=== PATIENT | male | born 1970 | race Caucasian/White ===

== ENCOUNTER → 2017-12-15 | Day surgery (SDC) | payer OTHER ==
[2017-12-10 11:01] VITALS: BMI 31.0
[~2017-12-15] MED LIST: LACTATED RINGERS 1,000 ML IV ONE; LACTATED RINGERS 1,000 ML IV SCH; LIDOCAINE 1% 20 ML VIAL (10MG/ML) FOR IV START INTRADERMA PRN; PROPOFOL 10 MG/ML 20 ML VIAL IV ONE
[2017-12-15 09:12] VITALS: RESP 18; TEMP 98
[2017-12-15 09:20] LABS: Glucose,Whole Blood 257 mg/dL (75-99)
--- NOTE | 2017-12-15 09:39 | P.GSHP ---
History of Present Illness H&P Date: 12/15/17 Chief Complaint: GERD, epigastric pain This is a 47-year-old male who presents today for EGD. He's had issues with GERD and epigastric pain. Past Medical History Past Medical History: Diabetes Mellitus, GERD/Reflux, Hyperlipidemia, Hypertension Additional Past Medical History / Comment(s): "lesion on kidney, enlarged gallbladder" History of Any Multi-Drug Resistant Organisms: MRSA Date of last positivie culture/infection: 2009 MDRO Source:: L Foot Additional Past Surgical History / Comment(s): Colonoscopy; eye surgery Past Anesthesia/Blood Transfusion Reactions: No Reported Reaction Smoking Status: Former smoker - Past Family History Mother Family Medical History: No Reported History Medications and Allergies Home Medications Medication Instructions Recorded Confirmed Type Aspirin [Adult Low Dose Aspirin EC] 81 mg PO DAILY 12/10/17 12/10/17 History Atorvastatin [Lipitor] 20 mg PO HS 12/10/17 12/10/17 History Insulin Aspart [Novolog] 100 unit SQ AC-TID 12/10/17 12/10/17 History Insulin Glargine [Lantus] 28 unit SQ BID 12/10/17 12/15/17 History Lisinopril-Hctz 20-25 mg 1 tab PO DAILY 12/10/17 12/15/17 History [Zestoretic 20-25] Loratadine 10 mg PO DAILY 12/10/17 12/10/17 History Multivitamin [Men's Multi-Vitamin] 1 each PO DAILY 12/10/17 12/10/17 History Omeprazole 20 mg PO DAILY 12/10/17 12/10/17 History Allergies Allergy/AdvReac Type Severity Reaction Status Date / Time No Known Allergies Allergy Verified 12/10/17 10:00 Surgical - Exam Vital Signs Temp Pulse Resp BP Pulse Ox 98.0 F 77 18 136/84 97 12/15/17 09:10 12/15/17 09:10 12/15/17 09:10 12/15/17 09:10 12/15/17 09:10 - General well developed, no distress - Eyes PERRL - ENT normal pinna - Neck no masses - Respiratory normal expansion - Cardiovascular Rhythm: regular - Abdomen Abdomen: soft, non tender Results - Labs Abnormal Lab Results - Last 24 Hours (Table) 12/15/17 Range/Units 09:18 POC Glucose (mg/dL) 257 H (75-99) mg/dL Assessment and Plan Assessment: GERD. We'll perform EGD.
--- NOTE | 2017-12-15 09:52 | P.OP ---
Date of Procedure: 12/15/17 Preoperative Diagnosis: GERD Postoperative Diagnosis: Antral gastritis No evidence of hiatal hernia Mild esophagitis Procedure(s) Performed: EGD Anesthesia: MAC Surgeon: Bradley Rushing Pathology: other (Antral, esophagus) Condition: stable Disposition: PACU Description of Procedure: Patient's placed on the endoscopy table in the lateral position. He received IV sedation. The gastroscope placed oropharynx passed in the esophagus stomach. Scope was placed through the pylorus. First and second portion duodenum appeared normal. Scope was then brought back the antrum and this was mildly inflamed. A biopsies performed. Scope was unretroflexed and remainder the stomach appeared normal. There was no significant hiatal hernia. GE junction was at 40 cm. The distal esophagus appeared mildly inflamed and a biopsies performed. The proximal esophagus appeared normal. Scope was withdrawn for patient.
[2017-12-15 09:56] VITALS: BP 123/81; PULSE 80
[2017-12-15 10:05] LABS: Glucose,Whole Blood 230 mg/dL (75-99)
--- NOTE | 2017-12-15 12:30 | NM ---
EXAMINATION TYPE: NM hepatobiliary w CCK DATE OF EXAM: 12/15/2017 COMPARISON: NONE HISTORY: Epigastric pain and indigestion TECHNIQUE: After the intravenous administration of 5.05 mCi Tc 99m Mebrofenin hepatobiliary scintigra phy is performed. Immediate images post injection. FINDINGS: There is satisfactory initial accumulation of tracer by the liver. The gallbladder is visualized wit hin 14 minutes. The small bowel activity is noted within 12 minutes. At one hour CCK was administer ed, patient was injected with 1.9 mcg of Kinevac, and gallbladder ejection fraction is calculated at 46 %, in the normal range. Therefore there is no scintigraphic evidence of cystic or common bile chalo t obstruction to suggest acute cholecystitis or gallbladder dyskinesia. IMPRESSION: Exam is within normal limits.
== END | disposition home or self-care (01) ==
LOC: ORWHC2ENDO 08:30
PROVIDERS: ATTEND Surgery
DX: K29.50 Unspecified chronic gastritis without bleeding (principal); K21.0 Gastro-esophageal reflux disease with esophagitis; I10 Essential (primary) hypertension; E78.5 Hyperlipidemia, unspecified; E11.9 Type 2 diabetes mellitus without complications; Z79.4 Long term (current) use of insulin; Z79.82 Long term (current) use of aspirin; Z87.891 Personal history of nicotine dependence; Z86.14 Personal history of Methicillin resistant Staphylococcus aureus infection; Z79.899 Other long term (current) drug therapy
CPT/HCPCS: 88305; 78227; 43239; A9537; J2805; J2704

== ENCOUNTER → 2017-12-22 | Outpatient (CLI) | payer OTHER ==
--- NOTE | 2017-12-23 09:03 | MR ---
EXAMINATION TYPE: MR kidney wo/w con DATE OF EXAM: 12/22/2017 COMPARISON: Outside complete abdominal ultrasound November 29, [address] abdomen November 20, 2014. HISTORY: Cholesterolosis of gallbladder, abdomen pain. Abnormal recent ultrasound. CONTRAST: Standard multiplanar, multisequence MRI departmental protocol utilizing 10 mL intravenous Gadavist ga dolinium contrast is performed of the abdomen focusing on the kidneys. FINDINGS: KIDNEYS: Kidneys are symmetric and felt within normal limits in size. There is mild to minimal nonspe cific surrounding perinephric fluid. No hydronephrosis is present bilaterally. Anteriorly mid pole le sol left kidney there is oval 14 x 7 mm lesion of T1 hyperintensity and T2 hypointensity without post contrast-enhancement felt to reflect proteinaceous cyst, this is not significantly changed in size f 2015 CT. No concerning solid or cystic renal mass is otherwise seen. GB: Gallbladder somewhat contracted otherwise felt within normal limits. No distinct gallstones are s een. There is no suspicious intrahepatic or extrahepatic biliary dilatation. OTHER: The liver, spleen, pancreas, and both adrenal glands are felt normal in size and grossly unrem arkable. Lung bases are clear. There is no suspicious small or large bowel dilatation. There is no co ncerning abdominal fluid collection. There is no suspicious greater than 1 cm abdominal adenopathy. S ubcentimeter retroperitoneal lymph nodes are redemonstrated and stable. Visualized osseous structures are intact. IMPRESSION: 1. No distinct intraluminal gallstones or MRI evidence for acute cholecystitis. No suspicious wall th ickening or signal to suggest cholesterosis. 2. Stable 1.4 cm lesion anteriorly mid pole level left kidney felt to reflect proteinaceous cyst. No new suspicious solid or cystic renal lesions.
== END | disposition home or self-care (01) ==
LOC: RADMRIMAIN 08:03
PROVIDERS: ATTEND Family Medicine
DX: N28.89 Other specified disorders of kidney and ureter (principal)
CPT/HCPCS: 74183; A9581

== ENCOUNTER → 2020-05-20 | Outpatient (CLI) | payer OTHER | END | disposition home or self-care (01) | LOC: LABWHC1 09:00 | PROVIDERS: ATTEND Family Medicine | DX: R50.9 Fever, unspecified (principal); J02.9 Acute pharyngitis, unspecified | CPT/HCPCS: U0003; C9803 ==

== ENCOUNTER → 2020-10-24 | Outpatient (CLI) | payer OTHER ==
--- NOTE | 2020-10-24 14:17 | XR ---
Cervical spine HISTORY: Neck pain 6 views of the cervical spine Cervical vertebral bodies show preserved height, alignment, and bone mineralization. Disc spaces are maintained. Prevertebral soft tissues are normal. C7-T1 not well seen. Oblique images not optimal to assess for foraminal encroachment in the upper right cervical spine. Possible atherosclerotic vascula r calcifications noted in the distribution of the carotid artery. There are facet arthropathy changes . IMPRESSION: Suspect facet arthropathy
--- NOTE | 2020-10-24 14:19 | XR ---
EXAMINATION TYPE: XR chest 2V DATE OF EXAM: 10/24/2020 COMPARISON: NONE HISTORY: Shortness of breath and neck pain TECHNIQUE: Frontal and lateral views of the chest are obtained. FINDINGS: There is no focal air space opacity, pleural effusion, or pneumothorax seen. The cardiac silhouette size is within normal limits. Right hemidiaphragm is elevated. The osseous structures are intact. IMPRESSION: No acute cardiopulmonary process.
== END | disposition home or self-care (01) ==
LOC: RADXRMAIN 10:15
PROVIDERS: ATTEND Family Medicine
DX: R06.02 Shortness of breath (principal); M54.2 Cervicalgia
CPT/HCPCS: 71046; 72050

== ENCOUNTER → 2021-01-23 | Outpatient (CLI) | payer OTHER ==
[~2021-01-23] MED LIST changes: -LACTATED RINGERS 1,000 ML IV ONE; -LACTATED RINGERS 1,000 ML IV SCH; -LIDOCAINE 1% 20 ML VIAL (10MG/ML) FOR IV START INTRADERMA PRN; -PROPOFOL 10 MG/ML 20 ML VIAL IV ONE; +REGADENOSON 0.4 MG/5 ML SYRINGE IV ONE
--- NOTE | 2021-01-23 11:04 | NM ---
EXAMINATION TYPE: NM stress lexiscan cardiolite DATE OF EXAM: 01/23/2021 COMPARISON: NONE HISTORY: Abnormal EKG TECHNIQUE: After the intravenous administration of 9.9 mCi Tc 99m Sestamibi - Cardiolite resting SPE CT images acquired 55 minutes post injection. The patient received 0.4mg Lexiscan, 25.4 mCi Tc 99m Sestamibi - Stress images obtained [address] injection FINDINGS: Review of stress and rest SPECT images demonstrates no distinct perfusion abnormality. Gated analysi s shows normal wall motion with an estimated left ventricular ejection fraction of 68 %. IMPRESSION: No scintigraphic evidence for reversible ischemia.
--- NOTE | 2021-01-23 11:23 | P.STRESS ---
- Stress Test Note Stress Test Results/Findings: Exam Performed: NM stress lexiscan cardiolite Exam Date: 01/23/21 Reason for Exam: ABNORMAL EKG Height: 5 ft 9 in Weight: 95.5 kg Protocol: LEXISCAN Stage: NA Duration of Exercise: 5 MINUTES Resting Heart Rate: 59 Resting Blood Pressure: 134/76 Maximum Achieved Heart Rate: 88 Maximum Achieved Blood Pressure: 151/74 85% PMHR: 145 100% PMHR: 171 METS: NA Technologist Comment: Stress Test Results/Findings: This is a 50-year-old gentleman with history of hypertension and hypercholesteremia and smoking history, being evaluated for cardiac status. Patient apparently also has abnormal EKG Stress data: Baseline EKG showed sinus rhythm with normal [place] interval and QRS duration. Blood pressure at rest was 134/76 with pulse rate of 59. A standard dose of Lexiscan was infused. EKGs taken during and after infusion did not reveal any significant changes from the baseline. Final impression: #1. Negative Lexiscan stress test #2. Report on the nuclear portion of the test to be provided by the radiologist
--- NOTE | 2021-01-24 09:21 | ECHOS ---
Stress Test Results/Findings: Exam Performed: NM stress lexiscan cardiolite Exam Date: 01/23/21 Reason for Exam: ABNORMAL EKG Height: 5 ft 9 in Weight: 95.5 kg Protocol: LEXISCAN Stage: NA Duration of Exercise: 5 MINUTES Resting Heart Rate: 59 Resting Blood Pressure: 134/76 Maximum Achieved Heart Rate: 88 Maximum Achieved Blood Pressure: 151/74 85% PMHR: 145 100% PMHR: 171 METS: NA Technologist Comment: Stress Test Results/Findings: This is a 50-year-old gentleman with history of hypertension and hypercholesteremia and smoking history, being evaluated for cardiac status. Patient apparently also has abnormal EKG Stress data: Baseline EKG showed sinus rhythm with normal NE interval and QRS duration. Blood pressure at rest was 134/76 with pulse rate of 59. A standard dose of Lexiscan was infused. EKGs taken during and after infusion did not reveal any significant changes from the baseline. Final impression: #1. Negative Lexiscan stress test #2. Report on the nuclear portion of the test to be provided by the radiologist SURENDRA
== END | disposition home or self-care (01) ==
LOC: RADNMMAIN 07:47
PROVIDERS: ATTEND Family Medicine
DX: I10 Essential (primary) hypertension (principal); E78.00 Pure hypercholesterolemia, unspecified; Z87.891 Personal history of nicotine dependence
CPT/HCPCS: 93017; 78452; A9500

== ENCOUNTER → 2021-01-24 | Outpatient (CLI) | payer OTHER ==
--- NOTE | 2021-01-24 09:40 | US ---
EXAMINATION TYPE: US carotid duplex BILAT DATE OF EXAM: 01/24/2021 COMPARISON: NONE CLINICAL HISTORY: I65.23 Carotid artery atherosclerosis. Plaque seen on recent x-ray, no stroke histo ry or symptoms EXAM MEASUREMENTS: RIGHT: Peak Systolic Velocity (PSV) cm/sec ----- Right CCA: 81.2 ----- Right ICA: 95.6 ----- Right ECA: 104 ICA/CCA ratio: 1.1 RIGHT: End Diastole cm/sec ----- Right CCA: 24.7 ----- Right ICA: 36.5 ----- Right ECA: 15.4 LEFT: Peak Systolic Velocity (PSV) cm/sec ----- Left CCA: 73.4 ----- Left ICA: 96.5 ----- Left ECA: 20.3 ICA/CCA ratio: 1.3 LEFT: End Diastole cm/sec ----- Left CCA: 26.7 ----- Left ICA: 33.1 ----- Left ECA: 20.3 VERTEBRALS (direction of flow): Right Vertebral: Antegrade Left Vertebral: Antegrade Rhythm: Normal Mild heterogeneous plaque seen at left bulb with no significant stenosis seen. IMPRESSION: 1. No evidence of hemodynamically significant stenosis of the bilateral internal carotid arteries. Th ere is less than 50% stenosis of the bilateral internal carotid arteries. 2. Mild atherosclerotic plaque at the left common carotid artery bifurcation. Criteria for Assigning % of Stenosis / Diameter reduction (Estimation based on the indirect measurements of the internal carotid artery velocities (ICA PSV). 1. Normal (no stenosis)=ICA PSV < 125 cm/s: ratio < 2.0: ICA EDV<40 cm/s. 2. Less than 50% stenosis=ICA PSV < 125 cm/s: ratio < 2.0: ICA EDV<40 cm/s. 3. 50 to 69% stenosis=ICA PSV of 125 to 230 cm/s: ration 2.0 ? 4.0: ICA EDV 40-100 cm/s. 4. Greater than 70% stenosis to near occlusion= ICA PSV > 230 cm/s: ratio > 4.0: ICA EDV > 100 cm/s. 5. Near occlusion= ICA PSV velocities may be low or undetectable: variable ratio and ICA EDV. 6. Total occlusion=unable to detect flow.
--- NOTE | 2021-01-24 10:01 | ECHOF ---
Referral Reason:R94.31 Abnormal EKG; R06.02 Shortness of breath... MEASUREMENTS -------- HEIGHT: 175.3 cm WEIGHT: 95.3 kg BP: 134/76 RVIDd: 3.4 cm (< 3.3) IVSd: 1.1 cm (0.6 - 1.1) LVIDd: 4.4 cm (3.9 - 5.3) LVPWd: 1.1 cm (0.6 - 1.1) IVSs: 1.8 cm LVIDs: 2.9 cm LVPWs: 1.8 cm LA Diam: 3.6 cm (2.7 - 3.8) LAESV Index (A-L): 22.13 ml/m Ao Diam: 3.0 cm (2.0 - 3.7) AV Cusp: 2.3 cm (1.5 - 2.6) MV EXCURSION: 20.499 mm (> 18.000) MV EF SLOPE: 91 mm/s (70 - 150) EPSS: 0.6 cm MV E Skyler: 0.71 m/s MV DecT: 270 ms MV A Skyler: 0.52 m/s MV E/A Ratio: 1.36 FINDINGS -------- Sinus rhythm. This was a technically good study. The left ventricular size is normal. Left ventricular wall thickness is normal. Overall left vent ricular systolic function is normal with, an EF between 60 - 65 %. The right ventricle is mildly enlarged. Normal LA size by volume 22+/-6 ml/m2. The right atrium is normal in size. Interatrial and interventricular septum intact. The aortic valve is trileaflet, and appears structurally normal. No aortic stenosis or regurgitation. There is trace mitral regurgitation. The tricuspid valve appears structurally normal. Unable to estimate RVSP due to inadequate TR jet s pectral doppler profile. Trace/mild (physiologic) pulmonic regurgitation. The aortic root size is normal. Normal inferior vena cava with normal inspiratory collapse consistent with estimated right atrial pre ssure of 5 mmHg. There is no pericardial effusion. CONCLUSIONS -------- 1. The left ventricular size is normal. 2. Left ventricular wall thickness is normal. 3. Overall left ventricular systolic function is normal with, an EF between 60 - 65 %. 4. The right ventricle is mildly enlarged. 5. The aortic valve is trileaflet, and appears structurally normal. No aortic stenosis or regurgitati on. 6. There is trace mitral regurgitation. 7. Trace/mild (physiologic) pulmonic regurgitation. 8. There is no pericardial effusion. DRIP PUMPER: Dana Su RDCS
== END | disposition home or self-care (01) ==
LOC: RADUSWWP 07:46
PROVIDERS: ATTEND Family Medicine
DX: I51.7 Cardiomegaly (principal); I65.23 Occlusion and stenosis of bilateral carotid arteries
CPT/HCPCS: 93306; 93880